=== PATIENT | female | born 1980 | race Caucasian/White ===

== ENCOUNTER 2025-01-31 09:27 | Emergency (ER) | payer OTHER, SELFPAY ==
--- NOTE | ~2025-01-31 | CT_ITS ---
EXAMINATION: CT abdomen pelvis w con DATE: 01/31/2025 11:01 INDICATION: Left lower abdominal pain TECHNIQUE: Computed tomography (CT) of the abdomen and pelvis was performed with 100 mL Omnipaque-350 intravenous contrast. Automated exposure control and iterative reconstruction technique were employed. The dose-length product was 500.45 mGy-cm. COMPARISON: None FINDINGS: Lung bases are clear. Heart size is normal. No pericardial or pleural effusion. Small sliding-type hiatal hernia. Mild diffuse hepatic steatosis. Gallbladder, spleen, pancreas, bilateral adrenal glands and kidneys are normal. Bowels including the appendix are normal. Bladder, uterus and bilateral adnexa are normal. No free intraperitoneal gas or fluid. No pathologically enlarged abdominal or pelvic lymphadenopathy. Bones are unremarkable. IMPRESSION: 1. No acute intra-abdominal/pelvic process. Reviewed, dictated and finalized at location A.
[2025-01-31 09:55] VITALS: BP 140/90; PULSE 87; RESP 16; TEMP 37; O2SAT 100
--- OUTSIDE RECORDS SUMMARY | 2025-01-31 09:56 | XMS_ITS | Clinical Summary ---
Author Organization [facility] Address [address] [place] [id number] Care Team Providers Care Compositor Apprentice Name Role Phone Unavailable Primary Care Provider Unavailabl e Social History Tobacco Use Types Packs/Day Years Used Date Smoking Tobacco: Never Assessed Comments Unknown Sex and Gender Information Value Date Recorded Sex Assigned at Not on file Legal Sex Female 6:09 PM CDT Gender Identity Not on file Sexual Orientation Not on file Plan of Treatment Health Maintenance Due Date Last Done Comments Cervical Cancer Screening Pa p Smear (Age 30 to 64) Every 3 Years 1980 Annual Physical 10/06/1983 Hepatitis C 1998 DTaP, Tdap and Td Vaccines ( 1 - Tdap) 10/06/1999 Hepatitis B Vaccines (1 of 3 - 19+ 3-dose series) 10/06/1999 HPV Vaccines (1 - 3-dose SCD M series) 10/06/2007 Cervical Cancer Screening Pa p with HPV Testing (Age 30 to 64) Every 5 Years 2010 Cervical Cancer Screening with HPV 2010 Mammogram Screening 2020 COVID-19 Vaccine (2023-2 5 season) 2024 Meningococcal B Vaccine Aged Out No l onger eligible based on patient's age to complete this topic Meningococcal Vaccine Aged Out No jen patience eligible based on patient's age to complete this topic Pneumococcal Vaccine: Pediat rics (0 to 5 Years) and At-Risk Patients (6 to 49 Years) Aged Out No longer eligible b ased on patient's age to complete this topic RSV Immunizations Under 20 Months Aged Out No longer eligible based on patient's age to complete this topic Insurance [facility]
--- OUTSIDE RECORDS SUMMARY | 2025-01-31 09:56 | XMS_ITS | Clinical Summary ---
Author Organization [address] Address [address] [place] [id number] Care Team Providers Care Events Assistant Name Role Phone Unknown, Notinfile Primary Care Provider Unavail able Allergies No known active allergies Medications meloxicam (MOBIC) 7.5 mg tablet Take 1 tablet (7.5 mg total) by mouth daily for 14 days 14 tablet 08/10/2024 Active Active Problems No known active problems Social History Tobacco Use Types Packs/Day Years Used Date Smoking Tobacco: Never Assessed Comments Unknown Sex and Gender Information Value Date Recorded Sex Assigned at Not on file Legal Sex Female 7:38 PM CDT Gender Identity Not on file Sexual Orientation Not on file Obstetrics History Last Filed Vital Signs Vital Sign Reading Time Taken Comments Blood Pressure 145/80 08/10/2024 4:03 PM CDT Pulse 80 08/10/2024 4:03 PM CDT Temperature 36.6 C (97.9 F) 08/10/2024 4:03 PM CDT Respiratory Rate 20 08/10/2024 4:03 PM CDT Oxygen Saturation 99% 08/10/2024 4:03 PM CDT Inhaled Oxygen Concentration - - Weight 81.6 kg (180 lb) 08/10/2024 4:03 PM CDT Height - - Body Mass Index - - Plan of Treatment Health Maintenance Due Date Last Done Comments Breast Cancer Screening-Mammogram 1980 Cervical Cancer Screening 1980 Depression Screening 1980 Hepatitis C Screening 1980 Varicella Vaccines (1 of 2 - 13+ 2-dose series) 1993 Hepatitis B Screening 1998 Regular Well Visit/Exam 18-64 1998 HPV Vaccines (1 - 3-dose SCD M series) 10/06/2007 DTaP/Tdap/Td Vaccine (2 - Td or Tdap) 03/07/2024 03/07/2014 Covid-19 Vaccine (3 - 2024-2 6 season) 2024 07/06/2020, 06/15/2020 Influenza Vaccine (#1) 2024 4, 03/13/2012 Pneumococcal vaccine <65 Aged Out No longer eligible based on patient's age to complete this topic Insurance [facility] CHO[facility] PL[facility] Care Teams Events Assistant Relationship Specialty Start Date End Date Unknown, Notinfile PCP - General 08/10/24
--- NOTE | 2025-01-31 10:13 | ED.GENADULT ---
HPI - General Adult General Chief complaint: Abdominal Pain Stated complaint: LLQ abdominal pain, N/V Time Seen by Provider: 01/31/25 09:49 History of Present Illness HPI narrative: Mireya Badillo is a 44-year-old female who presents today with complaints of having 2 weeks of off and on left lower quadrant abdominal pain that radiates to her left lower back along with intermittent vomiting. She states that she has had some diarrhea off and on. Last normal bowel movement was today. Denies any change 3 urine. Denies any fevers or chills. Currently rates her pain to her left lower quadrant at a 7/10. Related Data Home Medications ?Medication ?Instructions ?Recorded ?Confirmed ?Last Taken ?Type cholecalciferol (vitamin D3) 50 2,000 unit PO DAILY 05/01/19 05/09/23 Unknown History mcg (2,000 unit) tablet Allergies Allergy/AdvReac Type Severity Reaction Status Date / Time cefprozil Allergy Unknown Hives Verified 05/09/23 08:59 Review of Systems Review of Systems: All systems reviewed & are unremarkable except as noted in HPI and below PMFSH Past Medical History Medical History Vitamin D deficiency Generalized headaches Anxiety (~2017) Surgical History Surgical History Hx of shoulder surgery (~1998) Family History Family History Father Hypertension Mother Hypertension Grandparent Cerebrovascular accident Social History Social History Smoking status: Never smoker Alcohol intake: current Alcohol use details: social Substance use: never Substance use type: does not use Lack of Transportation: No Lack of Food: Never True Current Housing: I Have Housing Concerned About Future Housing: No Difficulty Paying Gas/Electric Bills: No Difficulty Paying for Meds: No Currently Unemployed: No Education: Master's Degree or Higher Difficulty w/ Childcare or Family Care: No Living arrangements: with family Occupation/Education: occupation 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 HEAD: Normocephalic, atraumatic. EYES: PERRLA and EOMI. ENT: Nares clear, no rhinorrhea or epistaxis. Mucous membranes moist. Oropharynx without tonsillar hypertrophy exudate or other lesions. NECK: Supple. No adenopathy or masses. No carotid bruits or JVD CHEST: Clear to auscultation. No respiratory distress. No wheezes rales or rhonchi HEART: Regular rate and rhythm. No murmur heard. Normal peripheral pulses. ABDOMEN: Soft, nondistended, normal active bowel sounds. Pain to left lower quadrant with palpation, left CVA tenderness with palpation EXTREMITIES: Normal range of motion. No edema. SKIN: Warm, dry, no rash. NEURO: No focal deficits. Alert and oriented x3. PSYCH: Normal mood and affect. Course Vital Signs Vital signs: Vital Signs Temperature 37.0 C 01/31/25 09:55 Pulse Rate 87 01/31/25 09:55 Respiratory Rate 16 01/31/25 09:55 Blood Pressure 140/90 01/31/25 09:55 Pulse Oximetry 100 01/31/25 09:55 Oxygen Delivery Room Air 01/31/25 09:55 Temperature 36.6 C 01/31/25 11:54 Pulse Rate 80 01/31/25 13:33 Respiratory Rate 17 01/31/25 13:33 Blood Pressure 106/93 H 01/31/25 13:33 Pulse Oximetry 99 01/31/25 13:33 Oxygen Delivery Room Air 01/31/25 09:55 Medical Decision Making [facility] Narrative Medical decision making narrative: 44-year-old with no significant past medical history presents with this intermittent left lower quadrant abdominal pain for 2 weeks with some intermittent vomiting. concern for : Diverticulitis, constipation, ureterolithiasis, sbo plan to check labs/ CT of abd and treat her with IV fluids, toradol, zofran and pepcid IV CBC: No leukocytosis, hemodynamically stable CMP-sodium 135 otherwise unremarkable Lipase-negative UA-2+ blood RBCs 3-5 Urine preg-negative CT abdomen pelvis-. No acute intra-abdominal/pelvic process. Patient updated on lab results and imaging results and re-evaluated. She states that she is no longer having that pain that she was having when she came in, she states that she is feeling better. Will send her home on continued famotidine and Zofran encourage clear liquids the next 24 hours and slowly advance to bland diet close follow-up with PCP and return her for any worsening symptoms. She feels comfortable with this plan denies needing anything else at this time Medical Records Medical records reviewed: Yes I reviewed the external patient's medical records. Vital Signs Vital Signs: Vital Signs Temperature 37.0 C 01/31/25 09:55 Pulse Rate 87 01/31/25 09:55 Respiratory Rate 16 01/31/25 09:55 Blood Pressure 140/90 01/31/25 09:55 Pulse Oximetry 100 01/31/25 09:55 Oxygen Delivery Room Air 01/31/25 09:55 Temperature 36.6 C 01/31/25 11:54 Pulse Rate 80 01/31/25 13:33 Respiratory Rate 17 01/31/25 13:33 Blood Pressure 106/93 H 01/31/25 13:33 Pulse Oximetry 99 01/31/25 13:33 Oxygen Delivery Room Air 01/31/25 09:55 Vitals reviewed Lab Data Lab results reviewed: Yes I reviewed the patient's lab results. 01/31/25 10:10 01/31/25 10:10 Labs: Lab Results 01/31/25 01/31/25 Range/Units 10:00 10:10 WBC 8.0 (4.5-10.0) K/mm3 RBC 4.43 (4.2-5.4) M/mm3 Hgb 13.7 (12.0-15.0) g/dL Hct 40.4 (37.0-47.0) % MCV 91.2 (80-100) fl MCH 30.9 (26-34) pg MCHC 33.9 (32-36) g/dl RDW 12.1 (11.5-14.5) % Plt Count 271 (150-375) k/mm3 MPV 10.1 (7.4-10.4) fl Immature Gran % (Auto) 0.3 (0-0.5) % Neut % (Auto) 76.6 H (45.5-73.1) % Lymph % (Auto) 13.5 L (18.3-44.2) % [place] % (Auto) 5.0 (2.6-8.5) % Eos % (Auto) 4.3 (0-4.4) % Baso % (Auto) 0.3 (0.2-1.2) % Lymph # (Auto) 1.08 (0.9-3.2) K/mm3 [place] # (Auto) 0.4 (0.1-0.6) K/mm3 Eos # (Auto) 0.3 (0-0.3) K/mm3 Baso # (Auto) 0.0 (0.0-0.1) K/mm3 Abs Immat Gran (auto) 0.02 (0.00-0.031) K/mm3 Absolute Neuts (auto) 6.1 (1.3-6.7) K/mm3 Absolute Nucleated RBC 0.000 (0.0-0.012) K/mm3 Nucleated RBC % 0.0 (0.0-0.2) % Sodium 135 L (137-145) mmol/L Potassium 3.9 (3.4-5.0) mmol/L Chloride 100 (98-107) mmol/L Carbon Dioxide 26 (22-30) mmol/L Anion Gap 9 (4-12) mmol/L BUN 14 (7-17) mg/dL Creatinine 0.81 (0.7-1.0) mg/dL Estim Creat Clear Calc 72 ml/min Estimated GFR > 60 (59 - ) Glucose 92 (65-110) mg/dL Lactic Acid 1.4 (0.7-2.0) mmol/L Calcium 9.3 (8.4-10.2) mg/dL Total Bilirubin 0.7 (0.2-1.3) mg/dL AST 27 (14-36) U/L ALT 26 (6-35) U/L Alkaline Phosphatase 70 (38-126) U/L Total Protein 8.5 H (6.3-8.2) g/dL Albumin 4.6 (3.5-5.1) g/dL Lipase 89 (23-300) U/L Urine Color Yellow (Yellow) Urine Appearance Clear (Clear) Urine pH 7.0 (5.0-9.0) Ur Specific [place] 1.005 (1.001-1.035) Urine Protein Negative (Negative) mg/dL Urine Glucose (UA) Negative (Negative) mg/dL Urine Ketones Negative (Negative) mg/dL Ur Blood (Man) 2+ H (Negative) Urine Nitrate Negative (Negative) Urine Bilirubin Negative (Negative) Urine Urobilinogen 0.2 (<2.0) mg/dL Leukocyte Esterase Rfl Negative (Negative) MORE/UL Urine RBC 3-5 H (0-2) /hpf Urine WBC 0-5 (0-3) /hpf Ur Squamous Epith Cells None seen (Few) /hpf Urine Bacteria None seen /hpf Urine Casts 0-2 POC Urine HCG, Qual Negative (Negative) Imaging Data Radiologist's impression: Impressions Abdomen/Pelvis CT 01/31/25 11:04 IMPRESSION: 1. No acute intra-abdominal/pelvic process. Discharge Plan Discharge Clinical Impression: Abdominal pain of unknown etiology Nausea & vomiting Qualifiers: Vomiting type: unspecified Qualified Code(s): R11.2 - Nausea with vomiting, unspecified Patient Disposition: Home Condition: Stable Instructions: Antibiotic Form, Abdominal Pain (ED) Additional Instructions: Please continue to take promoting once daily, you may take the ondansetron every 6 hours as needed for nausea please take to clear liquids for the next 24 hours and slowly advance to a bland diet. Please follow-up with your primary care doctor within 1 week to ensure your symptoms are improving If he should develop any new or worsening symptoms otherwise return to the emergency department Patient Language: Austrian Prescriptions: New famotidine 20 mg tablet 20 mg PO DAILY Qty: 30 0RF ondansetron 4 mg tablet,disintegrating 4 mg PO Q6H PRN (Reason: nausea and vomiting) Qty: 14 0RF famotidine 20 mg tablet 20 mg PO DAILY Qty: 30 0RF ondansetron 4 mg tablet,disintegrating 4 mg PO Q6H PRN (Reason: nausea and vomiting) Qty: 14 0RF No Action cholecalciferol (vitamin D3) 2,000 unit tablet 2,000 unit PO DAILY alprazolam [Xanax] 0.25 mg tablet 0.25 mg PO BID PRN (Reason: anxiety) Qty: 30 0RF fluoxetine 40 mg capsule 40 mg PO DAILY Qty: 90 0RF Rx Instructions: NEEDS APPOINTMENT FOR FURTHER REFILLS Follow-up/Referrals: León Martinez MD [Primary Care Provider, Family Practice] Stand Alone Forms: Work/School Release IP Time of Disposition: 13:04
[2025-01-31 10:17] LABS: Hematocrit 40.4 % (37.0-47.0); Hemoglobin 13.7 g/dL (12.0-15.0); Immature Granulocyte Percent A 0.3 % (0-0.5); Lymphocytes Absolute Auto 1.08 K/mm3 (0.9-3.2); Mean Corpuscular HGB Conc 33.9 g/dl (32-36); Mean Corpuscular Hemoglobin 30.9 pg (26-34); Mean Corpuscular Volume 91.2 fl (80-100); Nucleated Red Blood Cells Absolute Auto 0.000 K/mm3 (0.0-0.012); Nucleated Red Blood Cells Perc 0.0 % (0.0-0.2); Platelet Count Result 271 k/mm3 (150-375); Red Blood Count 4.43 M/mm3 (4.2-5.4); White Blood Count 8.0 K/mm3 (4.5-10.0)
[2025-01-31 10:22] LABS: Add Urine Microscopic? YES; Appearance Urine Clear (Clear); Glucose Urine UA Negative (Negative); Leukocyte Esterase Ur Negative LEU/UL (Negative); Nitrate Urine Negative (Negative); Non Pathogenic Casts 0-2; Specific Grav Ur 1.005 (1.001-1.035)
[2025-01-31 10:32] LABS: BEDSIDEPREGUCG Negative (Negative)
[2025-01-31 10:42] LABS: Alanine Aminotransferase 26 U/L (6-35); Albumin Level 4.6 g/dL (3.5-5.1); Alkaline Phosphatase 70 U/L (38-126); Anion Gap 9 mmol/L (4-12); Aspartate Amino Transferase 27 U/L (14-36); Bilirubin,Total 0.7 mg/dL (0.2-1.3); Blood Urea Nitrogen 14 mg/dL (7-17); Calcium 9.3 mg/dL (8.4-10.2); Carbon Dioxide 26 mmol/L (22-30); Chloride 100 mmol/L (98-107); Estimated CRCL calculation 72 ml/min; Estimated Glomerular Filt Rate > 60; Glucose 92 mg/dL (65-110); Lipase 89 U/L (23-300); Potassium 3.9 mmol/L (3.4-5.0); Sodium 135 mmol/L (137-145); Total Protein 8.5 g/dL (6.3-8.2)
[2025-01-31] MEDS: KETOROLAC 30 MG/ML VIAL (*BKC) IV PUSH (10:46)
[2025-01-31] MEDS: ONDANSETRON INJ 4 MG/2 ML VIAL IV PUSH (10:48)
[2025-01-31] MEDS: FAMOTIDINE 20 MG/2 ML VIAL IV PUSH (10:48)
[2025-01-31] MEDS: SODIUM CHLORIDE 0.9% IV 1,000 ML 999 ML IV CONT (10:51)
--- OUTSIDE RECORDS SUMMARY | 2025-01-31 10:59 | XMS_ITS | Clinical Summary ---
Author Organization [facility] Address [address] [place] [id number] Care Team Providers Care Adjunct Professor Of English Name Role Phone Unavailable Primary Care Provider [...] patient's age to complete this topic Insurance [facility]
--- OUTSIDE RECORDS SUMMARY | 2025-01-31 10:59 | XMS_ITS | Clinical Summary ---
Author Organization [address] Address [address] [place] [id number] Care Team Providers Care Physical Science Professor Name Role Phone Unknown, Notinfile Primary Care [...] patient's age to complete this topic Insurance [facility] CHOICE PLUS Care Teams Physical Science Professor Relationship Specialty Start Date End Date Unknown, Notinfile PCP - General 08/10/24
[2025-01-31 11:54] VITALS: BP 132/97; PULSE 89; RESP 20; TEMP 36.6; O2SAT 100
[2025-01-31 13:33] VITALS: BP 106/93; PULSE 80; RESP 17; O2SAT 99
== END 2025-01-31 13:35 | disposition home or self-care (01) ==
PROVIDERS: Emergency Provider Nurse Practitioner Family; PCP Family Medicine
DX: R10.32 Left lower quadrant pain (principal); R11.2 Nausea with vomiting, unspecified; E55.9 Vitamin D deficiency, unspecified; F41.9 Anxiety disorder, unspecified; Z79.899 Other long term (current) drug therapy
CPT/HCPCS: 36415; 74177; 80053; 81001; 81025; 83605; 83690; 85025; 96361; 96374; 96375; 99284; J1885; J2405; J7030; Q9967